=== PATIENT | female | born 1995 | race Caucasian/White ===

== ENCOUNTER 2016-08-26 15:08 | Emergency (ER) | payer BC ==
[2016-08-26] MEDS ORDERED: Ibuprofen TAB* 600 MG PO ONE (15:25)
--- NOTE | 2016-08-26 15:26 | UC ---
UC General HPI - HPI Summary HPI Summary: patient has had fever and chills, for the past few days, roomate had the flu and now she thinks she has it. - History of Current Complaint Stated Complaint: FEVER,CHILLS Time Seen by Provider: 08/26/16 15:13 Hx Obtained From: Patient Onset/Duration: Sudden Onset, Lasting Days Timing: Constant Onset Severity: Moderate Current Severity: Moderate Pain Intensity: 6 Associated Signs & Symptoms: Positive: Cough, Fever, Headache - Allergy/Home Medications Allergies/Adverse Reactions: Allergies Allergy/AdvReac Type Severity Reaction Status Date / Time No Known Allergies Allergy Verified 04/21/16 08:06 PMH/Surg Hx/FS Hx/Imm Hx Previously Healthy: Yes - Surgical History Surgical History: None - Family History Known Family History: Positive: Hypertension - Social History Alcohol Use: Occasionally Substance Use Type: None Smoking Status (MU): Never Smoked Tobacco Review of Systems Constitutional: Fever, Chills, Fatigue Skin: Negative Eyes: Negative ENT: Sore Throat, Nasal Discharge Respiratory: Cough Cardiovascular: Negative Gastrointestinal: Negative Genitourinary: Negative Motor: Negative Neurovascular: Negative Musculoskeletal: Myalgia Neurological: Headache Psychological: Negative All Other Systems Reviewed And Are Negative: Yes Physical Exam Triage Information Reviewed: Yes Appearance: Well-Nourished, Ill-Appearing, Pain Distress Vital Signs Reviewed: Yes Eye Exam: Normal Eyes: Positive: Conjunctiva Clear ENT: Positive: Pharyngeal erythema, Nasal congestion, Nasal drainage, TMs normal , Tonsillar swelling Dental Exam: Normal Neck exam: Normal Neck: Positive: Supple, Nontender, Enlarged Nodes @ - left cervical Respiratory Exam: Normal Respiratory: Positive: Chest non-tender, Lungs clear, Normal breath sounds Cardiovascular Exam: Normal Cardiovascular: Positive: RRR, No Murmur, Pulses Normal Abdominal Exam: Normal Abdomen Description: Positive: Nontender, No Organomegaly, Soft Bowel Sounds: Positive: Present Musculoskeletal Exam: Normal Musculoskeletal: Positive: Strength Intact, ROM Intact, No Edema Neurological Exam: Normal Neurological: Positive: Alert, Muscle Tone Normal Psychological Exam: Normal Skin Exam: Normal Course/Dx - Course Course Of Treatment: hx obtained, exam performed, medications reviewed, flu swab obtained and is positive, ibuprofen given. - Differential Dx - Multi-Symptom Provider Diagnoses: influenza A Discharge - Discharge Plan Condition: Stable Disposition: HOME Patient Education Materials: Influenza (ED) Forms: *School Release Additional Instructions: Your flu test is positive for Flu A. continue to get plenty of rest and increase your fluid intake. Follow up with any increase in respirtory symptom.
[2016-08-26 15:51] VITALS: BP 123/75
== END 2016-08-26 16:14 | disposition home or self-care (01) ==
LOC: UCCORT 15:08
DX: J10.1 Influenza due to other identified influenza virus with other respiratory manifestations (principal)
CPT/HCPCS: 87502; 99211; A9270-GY; G0463

== ENCOUNTER 2017-04-12 12:36 | Emergency (ER) | payer BC ==
--- NOTE | 2017-04-12 13:22 | UC ---
Eye Complaint HPI - HPI Summary HPI Summary: 22 YEAR YEAR OLD FEMALE PRESENTS WITH BILATERAL EYE REDNESS/DISCHARGE AND SORE THROAT. - History of Current Complaint Stated Complaint: EYE ISSUE Time Seen by Provider: 04/12/17 13:16 Hx Obtained From: Patient Hx Last Menstrual Period: DOES NOT HAVE REGULAR PERIODS WITH HER CONTROLL Onset/Duration: Sudden Onset Timing: Constant Severity Initially: Moderate Severity Currently: Moderate - Allergies/Home Medications Allergies/Adverse Reactions: Allergies Allergy/AdvReac Type Severity Reaction Status Date / Time No Known Allergies Allergy Verified 04/12/17 13:20 PMH/Surg Hx/FS Hx/Imm Hx Previously Healthy: Yes - Surgical History Surgical History: None - Family History Known Family History: Positive: Hypertension - Social History Alcohol Use: Occasionally Substance Use Type: None Smoking Status (MU): Never Smoked Tobacco Review of Systems Constitutional: Negative Skin: Negative Eyes: Drainage, Eye Redness ENT: Negative Respiratory: Negative Cardiovascular: Negative Gastrointestinal: Negative Genitourinary: Negative Motor: Negative Neurovascular: Negative Musculoskeletal: Negative Neurological: Negative Psychological: Negative All Other Systems Reviewed And Are Negative: Yes Physical Exam Triage Information Reviewed: Yes Vital Signs Reviewed: Yes Eyes: Positive: Conjunctiva Inflamed ENT Exam: Normal Dental Exam: Normal Neck exam: Normal Neck: Positive: 1 Respiratory Exam: Normal Cardiovascular Exam: Normal Abdominal Exam: Normal Musculoskeletal Exam: Normal Neurological Exam: Normal Psychological Exam: Normal Skin Exam: Normal Eye Complaint Course/Dx - Differential Dx/Diagnosis Provider Diagnoses: BILATERAL CONJUNCTIVITIS Discharge - Discharge Plan Condition: Stable Disposition: HOME Prescriptions: Polymyx/Trimethoprim OPTH* [Polytrim OPHTH*] 1 drop BOTH EYES Q6H #1 btl Patient Education Materials: Pharyngitis (ED), Conjunctivitis (ED) Referrals: Vernon Ivory MD [Medical Doctor] - Non Staff,Doctor [Primary Care Provider] -
[2017-04-12 13:23] VITALS: BP 115/80
== END 2017-04-12 14:06 | disposition home or self-care (01) ==
LOC: UCCORT 12:36
DX: H10.33 Unspecified acute conjunctivitis, bilateral (principal); J02.9 Acute pharyngitis, unspecified
CPT/HCPCS: 87651; 99212; G0463

== ENCOUNTER 2017-05-11 07:18 | Emergency (ER) | payer BC ==
[2017-05-11 07:34] VITALS: BP 127/81
--- NOTE | 2017-05-11 08:21 | UC ---
Complaint Female HPI - History Of Current Complaint Chief Complaint: [facility]CGU Stated Complaint: URINARY COMPLAINT Time Seen by Provider: 05/11/17 07:20 Hx Obtained From: Patient Hx Last Menstrual Period: 04/04/17 ?: No Pain Intensity: 0 Pain Scale Used: 0-10 Numeric - Allergies/Home Medications Allergies/Adverse Reactions: Allergies Allergy/AdvReac Type Severity Reaction Status Date / Time No Known Allergies Allergy Verified 04/12/17 13:20 PMH/Surg Hx/FS Hx/Imm Hx Previously Healthy: Yes - hx uti, last approx 6 months ago - Surgical History Surgical History: None - Family History Known Family History: Positive: Hypertension - Social History Alcohol Use: Occasionally Substance Use Type: None Smoking Status (MU): Never Smoked Tobacco Review of Systems Constitutional: Negative Skin: Negative Eyes: Negative ENT: Negative Respiratory: Negative Cardiovascular: Negative Gastrointestinal: Negative Genitourinary: Dysuria, Frequency Motor: Negative Neurovascular: Negative Musculoskeletal: Negative Neurological: Negative Psychological: Negative Is Patient Immunocompromised?: No All Other Systems Reviewed And Are Negative: Yes Physical Exam Triage Information Reviewed: Yes Appearance: Well-Nourished Vital Signs: Initial Vital Signs Temp 98.4 F 05/11/17 07:24 Pulse 99 05/11/17 07:24 BP 127/81 05/11/17 07:24 Vital Signs Reviewed: Yes Eye Exam: Normal ENT Exam: Normal Dental Exam: Normal Neck exam: Normal Respiratory Exam: Normal Cardiovascular Exam: Normal Abdominal Exam: Normal Abdomen Description: Positive: Other: - bladder discomfort, no cvat. Musculoskeletal Exam: Normal Neurological Exam: Normal - nonfocal Psychological Exam: Normal Skin Exam: Normal Complaint Female Dx - Differential Dx/Diagnosis Provider Diagnoses: Reviewed urine dip. Reviewed dip with mom. Reviewed tx / coa. Questions answered to the best of my ability. Discharge - Discharge Plan Condition: Stable Disposition: HOME Prescriptions: Ciprofloxacin HCl [Cipro 500 MG TAB] 500 mg PO BID #14 tab Phenazopyridine 200 mg (NF) [Pyridium 200 MG tab *] 200 mg PO TID PRN #12 tab PRN Reason: Pain Patient Education Materials: Urinary Tract Infection in Women (ED) Referrals: Non Staff,Doctor [Primary Care Provider] - Additional Instructions: Use back up method for the duration of menstrual cycle while taking antibiotic Drink lots of water. You are dehydrated. Seek medical attention for worse or new problems. Avoid prolonged sun exposure while taking ciprofloxacin. Follow up primary care physician per routine.
--- NOTE | 2017-05-14 08:43 | UC ---
Progress - Progress Note Progress Note: RN to call pt. + E coli. Cont ciprofloxacin.
== END 2017-05-11 08:16 | disposition home or self-care (01) ==
LOC: UCCORT 07:18
DX: N39.0 Urinary tract infection, site not specified (principal); B96.20 Unspecified Escherichia coli [E. coli] as the cause of diseases classified elsewhere; Z32.02 Encounter for pregnancy test, result negative; Z87.440 Personal history of urinary (tract) infections
CPT/HCPCS: 81003; 84702; 87077; 87086; 87186; 99212; G0463